=== PATIENT | female | born 1965 | race Caucasian/White ===

== ENCOUNTER 2020-11-29 12:55 | Outpatient (REF) | payer MEDICAID, SELFPAY | END 2020-11-29 12:56 | disposition home or self-care (01) | LOC: HO.SCI 12:55 | DX: Z13.89 Encounter for screening for other disorder (principal) ==

== ENCOUNTER 2020-12-13 08:16 | Outpatient (REF) | payer MEDICAID, SELFPAY ==
--- NOTE | ~2020-12-13 | MM_ITS ---
EXAMINATION: MM SCREENING DIGITAL BREAST TOMOSYNTHESIS, BILATERAL CLINICAL INFORMATION: Screening. Asymptomatic. Age 55. Prior [id number] mammography from [place] currently unavailable. Family history breast cancer, maternal aunt. The lifetime risk of breast cancer based on the Tyrer-Cuzick Model is 12%. COMPARISON: None. TECHNIQUE: Digital breast tomosynthesis is performed in both the craniocaudal and mediolateral oblique views along with computer-aided detection (CAD). Synthesized 2D images are generated from the tomosynthesis. FINDINGS: There are scattered areas of fibroglandular density (ACR BI-RADS breast composition Category b). There are no significant masses, abnormal calcifications, or other abnormalities. There are scattered benign-appearing asymmetries. The axilla and skin contours are unremarkable. MM/MM tomosynthesis screening BI IMPRESSION: No mammographic evidence of malignancy. ASSESSMENT: BI-RADS 2: Benign RECOMMENDATION: 1. Routine annual mammography screening. 2. Radiology department staff will attempt to retrieve prior outside mammography to allow for comparison in an addendum report. This patient's information was entered into a reminder system with a target due date for their next mammogram.
== END 2020-12-13 08:17 | disposition home or self-care (01) ==
LOC: HO.MAMMO 08:16
PROVIDERS: PCP Registered Nurse; Visit Provider Registered Nurse
DX: Z12.31 Encounter for screening mammogram for malignant neoplasm of breast (principal)
CPT/HCPCS: 77063; 77067

== ENCOUNTER 2021-02-22 07:39 | Outpatient (REF) | payer MEDICAID, SELFPAY ==
--- NOTE | ~2021-02-22 | US_ITS ---
EXAMINATION: US DIAGNOSTIC ULTRASOUND BREAST, LEFT CLINICAL INFORMATION: Left breast pain 2-3 weeks. No discharge or palpable abnormality. Recent mammography unremarkable. COMPARISON: Mammography 12/13/2020, outside mammography 06/13/2018, 03/11/2017 ([facility]). TECHNIQUE: Left breast is targeted to the area of clinical concern 5:00 to 7:00 position. Grayscale imaging and color Doppler are performed without and with harmonics. FINDINGS: There is no focal suspicious finding. There is no cystic or solid mass, architectural abnormality, duct ectasia, or edema in the soft tissue planes. No hyperemia on color Doppler. Results are discussed with the patient at time of visit. US/US breast LT limited IMPRESSION: Unremarkable targeted left breast ultrasound. ASSESSMENT: BI-RADS 1: Negative RECOMMENDATION: Patient's left breast pain should be managed based on the clinical impression. This patient's information was entered into a reminder system with a target due date for their next mammogram.
== END 2021-02-22 07:40 | disposition home or self-care (01) ==
LOC: HO.MAMMO 07:39
PROVIDERS: Visit Provider Internal Medicine
DX: N64.4 Mastodynia (principal)
CPT/HCPCS: 76642

== ENCOUNTER 2021-09-19 10:30 | Outpatient (REF) | payer MEDICAID, SELFPAY ==
--- NOTE | ~2021-09-19 | XR_ITS ---
EXAMINATION: XR CHEST CLINICAL INFORMATION: Pleurodynia COMPARISON: None TECHNIQUE: 2 views of the chest were obtained. FINDINGS: No significant abnormality is noted involving the heart, lungs, mediastinum, bony thorax or soft tissues. XR/XR chest 2V IMPRESSION: Unremarkable examination.
== END 2021-09-19 10:31 | disposition home or self-care (01) ==
LOC: HO.XRAY 10:30
PROVIDERS: Absent Provider Registered Nurse Community Health; PCP Registered Nurse Community Health; Visit Provider Nurse Practitioner
DX: R07.81 Pleurodynia (principal)
CPT/HCPCS: 71046

== ENCOUNTER 2022-03-13 09:12 | Outpatient (REF) | payer MEDICAID, SELFPAY ==
--- NOTE | ~2022-03-13 | MM_ITS ---
EXAMINATION: MM SCREENING DIGITAL BREAST TOMOSYNTHESIS, BILATERAL CLINICAL INFORMATION: Screening. Asymptomatic. The lifetime risk of breast cancer based on the Tyrer-Cuzick Model is 14%. COMPARISON: Mammography: 12/13/2020, at outside mammography 06/13/2018, 03/11/2017 ([place], [place]). TECHNIQUE: Digital breast tomosynthesis is performed in both the craniocaudal and mediolateral oblique views along with computer-aided detection (CAD). Synthesized 2D images are generated from the tomosynthesis. FINDINGS: There are scattered areas of fibroglandular density (ACR BI-RADS breast composition Category b). There are no significant masses, abnormal calcifications, or other abnormalities. Parenchymal pattern is similar to prior studies. There is no developing density or architectural abnormality. The axilla are unremarkable. No significant changes. MM/MM tomosynthesis screening BI IMPRESSION: No mammographic evidence of malignancy. ASSESSMENT: BI-RADS 1: Negative RECOMMENDATION: Routine annual mammography screening. This patient's information was entered into a reminder system with a target due date for their next mammogram.
== END 2022-03-13 09:13 | disposition home or self-care (01) ==
LOC: HO.MAMMO 09:12
PROVIDERS: PCP Registered Nurse Community Health; Visit Provider Registered Nurse Community Health
DX: Z12.31 Encounter for screening mammogram for malignant neoplasm of breast (principal)
CPT/HCPCS: 77063; 77067

== ENCOUNTER 2023-04-09 10:13 | Outpatient (REF) | payer MEDICAID, SELFPAY ==
--- NOTE | ~2023-04-09 | MM_ITS ---
EXAMINATION: MM SCREENING DIGITAL BREAST TOMOSYNTHESIS, BILATERAL CLINICAL INFORMATION: Screening. Asymptomatic. The lifetime risk of breast cancer based on the Tyrer-Cuzick Model is 11%. COMPARISON: Mammography: 03/13/2022, 12/13/2020; outside exams 06/13/2018 and 03/11/2017 ([facility] [place], [place], [place] TECHNIQUE: Digital breast tomosynthesis is performed in both the craniocaudal and mediolateral oblique views along with computer-aided detection (CAD). Synthesized 2D images are generated from the tomosynthesis. FINDINGS: There are scattered areas of fibroglandular density (ACR BI-RADS breast composition Category b). There are no significant masses, abnormal calcifications, or other abnormalities. No architectural abnormality or developing density or significant change from prior studies. The axilla and skin contours are unremarkable. MM/MM tomosynthesis screening BI IMPRESSION: No mammographic evidence of malignancy. ASSESSMENT: BI-RADS 1: Negative RECOMMENDATION: Routine annual mammography screening. This patient's information was entered into a reminder system with a target due date for their next mammogram.
== END 2023-04-09 10:14 | disposition home or self-care (01) ==
LOC: HO.MAMMO 10:13
PROVIDERS: Visit Provider Registered Nurse Community Health
DX: Z12.31 Encounter for screening mammogram for malignant neoplasm of breast (principal)
CPT/HCPCS: 77063; 77067

== ENCOUNTER 2023-10-21 09:12 | Outpatient (REF) | payer MEDICAID, SELFPAY ==
[2023-10-21 11:35] LABS: Hematocrit 41.6 % (37.0-47.0); Hemoglobin 13.5 g/dl (12.0-16.0); Mean Corpuscular HGB Conc 32.5 g/dl (31.0-35.0); Mean Corpuscular Hemoglobin 29.8 pg (27.0-33.0); Mean Corpuscular Volume 91.8 fL (80.0-98.0); Mean Platelet Volume 10.5 fL (9.4-12.3); Platelet Count 364 X10*3/uL (160-400); Red Blood Count 4.53 X10*6/uL (4.20-5.50); Red Cell Distribution Width 11.8 % (11.0-16.0); White Blood Count 5.5 X10*3/uL (4.8-10.8)
[2023-10-21 11:52] LABS: Estimated Average Glucose 105 mg/dL; Hemoglobin A1c % 5.3 % (<6.0)
[2023-10-21 12:10] LABS: HBsAGNum1 0.27 S/CO (0.00-0.99); Hepatitis B Surface Antigen Negative (Negative)
[2023-10-21 12:13] LABS: HBS Num1 0.18 mIU/mL (0-7.99); HBc Num1 0.12 S/CO (0.00-0.79); Hepatitis B Core Antibody Nonreactive (Nonreactive); ~HepC Num1 0.57 S/CO (0.00-0.79); ~Hepatitis B Surface Antibody NONREACTIVE (Nonreactive); ~Hepatitis C Antibody Nonreactive (Nonreactive)
[2023-10-21 12:23] LABS: Alanine Aminotransferase 13 U/L (0-31); Albumin Level 4.3 g/dL (3.5-5.0); Alkaline Phosphatase 62 U/L (39-117); Anion Gap 13 (12-20); Aspartate Amino Transferase 17 U/L (5-31); Bilirubin Total 1.1 mg/dL (0.0-1.0); Blood Urea Nitrogen 13 mg/dL (9-16); Calcium 9.3 mg/dL (8.4-10.2); Carbon Dioxide 25 mmol/L (22-29); Chloride 104 mmol/L (96-108); Cholesterol 183 mg/dL (<200); Estimated Glomerular Filt Rate > 60; Glucose Random 93 mg/dL (60-115); HDL Cholesterol 79 mg/dL (>40); Iron 106 mcg/dL (30-160); LDL Cholesterol Calculated 93 mg/dL (<100); Percent Iron Saturation 30 % (15-50); Sodium 138 mmol/L (135-145); Total Iron Binding Capacity 350 mcg/dL (228-428); Total Protein 7.1 g/dL (6.5-8.0); Triglycerides 56 mg/dL (<150); Unsaturated Iron Binding 244 ug/dL
[2023-10-21 12:31] LABS: Ferritin 47 ng/mL (10-250); TSH reflex Free T4 0.98 uIU/mL (0.32-4.0)
== END 2023-10-21 09:13 | disposition home or self-care (01) ==
LOC: HO.HHCL 09:12
PROVIDERS: Visit Provider Student in an Organized Health Care Education/Training Program
DX: Z00.00 Encounter for general adult medical examination without abnormal findings (principal); Z13.1 Encounter for screening for diabetes mellitus; Z11.59 Encounter for screening for other viral diseases; Z13.220 Encounter for screening for lipoid disorders; Z13.29 Encounter for screening for other suspected endocrine disorder
CPT/HCPCS: 36415; 80053; 80061; 82728; 83036; 83540; 84443; 85027; 86704; 86706; 86803; 87340

== ENCOUNTER 2023-10-21 13:31 | Outpatient (REF) | payer MEDICAID, SELFPAY ==
[2023-10-25 03:48] LABS: HPV mRNA E6/E7 rflx Not Detected (Not Detected)
== END 2023-10-21 13:32 | disposition home or self-care (01) ==
LOC: HO.HHCLNP 13:31
PROVIDERS: Visit Provider Advanced Practice Midwife
DX: Z12.4 Encounter for screening for malignant neoplasm of cervix (principal); Z78.0 Asymptomatic menopausal state; Z11.51 Encounter for screening for human papillomavirus (HPV)
CPT/HCPCS: 87624; 88142

== ENCOUNTER 2023-12-10 09:00 | Outpatient (RCR) | payer MEDICAID, SELFPAY | END 2024-01-07 12:02 | disposition home or self-care (01) | LOC: HO.PT 09:00 | PROVIDERS: PCP Student in an Organized Health Care Education/Training Program; Visit Provider Student in an Organized Health Care Education/Training Program | DX: M25.512 Pain in left shoulder (principal); R42 Dizziness and giddiness | CPT/HCPCS: 97110; 97140; 97162; 97530 ==

== ENCOUNTER 2024-01-13 13:21 | Outpatient (REF) | payer MEDICAID, SELFPAY ==
--- NOTE | ~2024-01-13 | XR_ITS ---
EXAMINATION: XR SHOULDER, LEFT CLINICAL INFORMATION: Chronic left shoulder pain. COMPARISON: None available. TECHNIQUE: AP external rotation, Grashey, scapular Y, and axillary views of the left shoulder. FINDINGS: Some minimal degenerative changes are seen with some mild sclerotic change at the inferior glenoid. No large osteophytes. No joint space narrowing. No abnormal calcifications in the rotator cuff. The AC joint appears normal. No fractures or dislocations. XR/XR shoulder LT min 2V IMPRESSION: Minimal degenerative changes in the left shoulder.
== END 2024-01-13 13:22 | disposition home or self-care (01) ==
LOC: HO.HHCX 13:21
PROVIDERS: Visit Provider Student in an Organized Health Care Education/Training Program
DX: M25.512 Pain in left shoulder (principal)
CPT/HCPCS: 73030

== ENCOUNTER 2024-04-13 09:44 | Outpatient (REF) | payer MEDICAID, SELFPAY | END 2024-04-13 09:45 | disposition home or self-care (01) | LOC: HO.MAMMO 09:44 | PROVIDERS: PCP Student in an Organized Health Care Education/Training Program; Visit Provider Student in an Organized Health Care Education/Training Program | DX: Z12.31 Encounter for screening mammogram for malignant neoplasm of breast (principal) | CPT/HCPCS: 77063; 77067 ==

== ENCOUNTER → 2024-04-13 10:00 | Outpatient (BNV) | payer MEDICAID, SELFPAY | PROVIDERS: PCP Student in an Organized Health Care Education/Training Program; Visit Provider Radiology Diagnostic Radiology | DX: Z12.31 Encounter for screening mammogram for malignant neoplasm of breast (principal) | CPT/HCPCS: 77063; 77067 ==

== ENCOUNTER 2025-05-04 08:47 | Outpatient (REF) | payer OTHER, SELFPAY ==
--- OUTSIDE RECORDS SUMMARY | 2025-05-04 09:05 | XMS_ITS | Encounter Summary ---
Author Organization [employer] Address [address] [place] [address] Care Team Providers Care Radioactive Waste Disposal Dispatcher Name Role Phone Martina Pearson MD Primary Care Pro vider Reason for Visit * Reason Onset Date Comments Med Refill 04/19/2025 Encounter Details Date Type Department Care Team ([facility] Contact Info) Description 04/19/2025 Telephone [facility] MEDICINE [address] [place] [address] Martina Pearson MD [address] [place] [address] Med Refill Social History Tobacco Use Types Packs/Day Years Used Date Smoking Tobacco: Never Passive Smoke Exposure: Never Smokeless Tobacco: Never Alcohol Use Standard Drinks/Week Comments Not Currently 0 (1 standard drink = 0.6 oz pure alcohol) 3 times a week -wine 1/2 Glass Depression Answer Date Recorded Patient Health Questionnaire-9 Score 0 11/13/2024 Patient Health Questionnaire-9 Score 0 11/13/2024 Last PHQ-9: Questionnaire Data Not on file 0 11/13/2024 Housing Stability Answer Date Recorded What is your housing situation today? I have sarithaisabel gonzalez 01/13/[address] you li ve. Do you have problems with any of the following? None of the above 01/13/2024 Food Insecurity Answer Date Recorded Within the past 12 months, y ou worried that your food would run out before you got money to buy more: Never True 01/13/2024 Within the past 12 months,th e food you bought just didn't last and you didn't have enough money to get more: Never True 09/2024 Transportation Answer Date Recorded In the past 12 months, has l ack of transportation kept you from medical appts, meetings, work or from getting things needed for daily living? No 01/13/2024 Utilities Answer Date Recorded In the past 12 months, has t he electric, gas, oil or water company threatened to shut off services in your home? No 01/13/2024 Depression Answer Date Recorded Patient Health Questionnaire-2 Score 0 11/13/2024 Internet Access Answer Date Recorded Internet Access Q1 Yes 09/21/2024 Internet Access Q2 Not on file 09/21/2024 Comments No Sex and Gender Information Value Date Recorded Sex Assigned at Female 09/03/2022 10:36 AM EDT Legal Sex Female 10:36 AM EDT Gender Identity Female 07/15/2023 2:14 PM EDT Sexual Orientation Straight 07/15/2023 2: 14 PM EDT documented as of this encounter Miscellaneous Notes * Telephone Encounter - Annabelle Abrams LPN - 04/19/2025 1:29 PM EDT Medication pended to PCP for approval. * Telephone Encounter - Pily Adlana - 04/19/2025 1:24 PM EDT TC from pt requesting medication refill. Medications needing refill : citalopram (CeleXA) 10 MG tablet To be sent to: [facility]/pharmacy #[id number] documented in this encounter Plan of Treatment Upcoming Encounters Date Type Department Care Team (Late st Contact Info) Description 07/13/2025 9:15 AM EDT Office Visit [facility] MEDICINE [address] [place] [address] Martina Pearson MD [address] [place] [address] documented as of this encounter Visit Diagnoses Not on filedocumented in this encounter Additional Health Concerns Assessment Noted Time PHQ-9 Depression Total Score: 0 11/13/19 25 3:27 PM EST documented as of this encounter Care Teams Radioactive Waste Disposal Dispatcher Relationship Specialty Start Date End Date Martina Pearson MD [address] [place] [id number] PCP - General Internal Medicine 07/22/23 documented as of this encounter
== END 2025-05-04 08:48 | disposition home or self-care (01) ==
LOC: HO.MAMMO 08:47
PROVIDERS: PCP Student in an Organized Health Care Education/Training Program; Visit Provider Student in an Organized Health Care Education/Training Program
DX: Z12.31 Encounter for screening mammogram for malignant neoplasm of breast (principal)
CPT/HCPCS: 77063; 77067

== ENCOUNTER → 2025-05-04 09:00 | Outpatient (BNV) | payer OTHER, SELFPAY | PROVIDERS: PCP Student in an Organized Health Care Education/Training Program; Visit Provider Internal Medicine | DX: Z12.31 Encounter for screening mammogram for malignant neoplasm of breast (principal) | CPT/HCPCS: 77063; 77067 ==

== ENCOUNTER 2025-07-13 10:19 | Outpatient (REF) | payer OTHER, SELFPAY ==
--- NOTE | ~2025-07-13 | XR_ITS ---
EXAMINATION: XR CHEST CLINICAL INFORMATION: pt having dyspnea episodes COMPARISON: September 19, 2021 TECHNIQUE: PA and lateral views FINDINGS: Hyperinflated lungs. Pulmonary reticular pattern. No gross consolidation, pleural effusion or pneumothorax. Cardiomediastinal silhouette is normal. Mild multilevel thoracic and upper lumbar spondylosis. Osteopenia versus the process. 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 No acute airspace disease. Electronically signed by: Abdoul Carlos MD 07/13/2025 10:35 AM EDT
--- OUTSIDE RECORDS SUMMARY | 2025-07-13 09:15 | XMS_ITS | Encounter Summary ---
Author Organization [employer] Address [address] [place] [address] Care Team Providers Care Life Insurance Specialist Name Role Phone Martina Pearson MD Primary Care Pro vider Reason for Referral * Consultation (Routine) - Authorized Specialty Diagnoses / Procedures Referred By Jayleen t Referred To Contact Family Medicine Diagnoses Skin lesion Martina Pearson MD [address] [place] [address] Phone: tel: fax: Referral ID Status Reason Start Date Expiration Date Visits Requested Visits Authorized [id number] Authorized Specialty Services Required 07/13/2025 07/13/2026 1 1 * PFT (Routine) - Pending Review Specialty Diagnoses / Procedures Referred By Jayleen sylvester Referred To Contact Diagnoses Other form of dyspnea Annual physical exam Procedures Pulmonary Function Test Martina Pearson MD [address] [place] [address] Phone: tel: fax: Referral ID Status Reason Start Date Expiration Date V isits Requested Visits Authorized [id number] Pending Review 07/13/2025 07/13/2026 1 1 Encounter Details Date Type Department Care Team (Late st Contact Info) Description 07/13/2025 9:15 AM EDT Office Visit [facility] MEDICINE [address] [place] [phone] Martina Pearson MD [address] [place] [address] Other form of dyspnea (Primary Dx); Annual physical exam; Skin lesion; Chest discomfort Social History Tobacco Use Types Packs/Day Years Used Date Smoking Tobacco: Never Passive Smoke Exposure: Never Smokeless Tobacco: Never Tobacco Cessation:Counseling Given: Not Answered Alcohol Use Standard Drinks/Week Comments Not Currently 0 (1 standard drink = 0.6 oz pure alcohol) 3 times a week 1 glass of wine Depression Answer Date Recorded Patient Health Questionnaire-9 Score 3 07/13/2025 Patient Health Questionnaire-9 Score 3 07/13/2025 Last PHQ-9: Questionnaire Data Not on file 0 07/13/2025 Housing Stability Answer Date Recorded What is your housing situation today? I have saritha gonzalez 06/11/[address] you li ve. Do you have problems with any of the following? None of the above 06/11/2025 Food Insecurity Answer Date Recorded Within the past 12 months, y ou worried that your food would run out before you got money to buy more: Never True 06/11/2025 Within the past 12 months,th e food you bought just didn't last and you didn't have enough money to get more: Never True 06/2025 Transportation Answer Date Recorded In the past 12 months, has l ack of transportation kept you from medical appts, meetings, work or from getting things needed for daily living? No 06/11/2025 Utilities Answer Date Recorded In the past 12 months, has t he electric, gas, oil or water company threatened to shut off services in your home? No 06/11/2025 Depression Answer Date Recorded Patient Health Questionnaire-2 Score 0 07/13/2025 Internet Access Answer Date Recorded Internet Access Q1 Yes 09/21/2024 Internet Access Q2 Not on file 09/21/2024 Comments No Sex and Gender Information Value Date Recorded Sex Assigned at Female 09/03/2022 10:36 AM EDT Legal Sex Female 10:36 AM EDT Gender Identity Female 07/15/2023 2:14 PM EDT Sexual Orientation Straight 07/15/2023 2: 14 PM EDT documented as of this encounter Last Filed Vital Signs Vital Sign Reading Time Taken Comments Blood Pressure 96/62 07/13/2025 9:19 AM EDT Pulse 88 07/13/2025 9:19 AM EDT Temperature 36.2 C (97.1 F) 07/13/2025 9:19 AM EDT Respiratory Rate 20 07/13/2025 9:19 AM EDT Oxygen Saturation 97% 07/13/2025 9:19 AM EDT Inhaled Oxygen Concentration - - Weight 61.6 kg (135 lb 12.8 oz) 07/13/2025 9:19 AM EDT Height 162.6 cm (5' 4 ) 07/13/2025 9:19 AM EDT Body Mass Index 23.31 07/13/2025 9:19 AM EDT documented in this encounter Functional Status * Over the past 2 weeks, how often have you been bothered by any of the following problems? Question Answer Date of Assessment Author Patient Health Questionnaire -2 Score 0 07/13/2025 10:17 AM EDT Gretel Perez MA * Little interest or pleasure in doing things Answer Date of Assessment Author Not at all 07/13/2025 10:17 AM Gretel Camarena MA * Feeling down, depressed, or hopeless Answer Date of Assessment Author Not at all 07/13/2025 10:17 AM Gretel Camarena MA * Trouble falling or staying asleep, or sleeping too much Answer Date of Assessment Author More than half the days 07/13/2025 10:17 AM Gretel Camarena MA * Feeling tired or having little energy Answer Date of Assessment Author Several days 07/13/2025 10:17 AM Gretel Camarena MA * Poor appetite or overeating Answer Date of Assessment Author Not at all 07/13/2025 10:17 AM Gretel Camarena MA * Feeling bad about yourself - or that you are a failure or have let yourself or your family down Answer Date of Assessment Author Not at all 07/13/2025 10:17 AM Gretel Camarena MA * Trouble concentrating on things, such as reading the newspaper or watching television Answer Date of Assessment Author Not at all 07/13/2025 10:17 AM Gretel Camarena MA * Moving or speaking so slowly that other people could have noticed? Or the opposite - being so fidgety or restless that you have been moving around a lot more than usual. Answer Date of Assessment Author Not at all 07/13/2025 10:17 AM Gretel Camarena MA * Thoughts that you would be better off or hurting yourself in some way Answer Date of Assessment Author Not at all 07/13/2025 10:17 AM Gretel Camarena MA * Patient Health Questionnaire-9 Score Answer Date of Assessment Author 3 07/13/2025 10:17 AM Gretel Camarena MA * How difficult have these problems made it for you to do your work, take care of things at home, or get along with other people? Answer Date of Assessment Author Not difficult at all 07/13/2025 10:17 AM Gretel Reddy MA * Over the last 2 weeks, how often have you been bothered by any of the following problems? Question Answer Date of Assessment Author Feeling nervous, anxious, or on edge 3 07/13/2025 10:17 AM Gretel Camarena MA Not being able to stop or co ntrol worrying 1 07/13/2025 10:17 AM Gretel Camarena MA Worrying too much about diff erent things 1 07/13/2025 10:17 AM Gretel Camarena MA Trouble relaxing 3 07/13/2025 10:17 AM Gretel Camarena MA Being so restless that it is hard to sit still 0 07/13/2025 10:17 AM Gretel Camarena MA Becoming easily annoyed or irritable 3 07/13/2025 10:17 AM Gretel Camarena MA Feeling afraid as if somethi ng awful might happen 0 07/13/2025 10:17 AM Gretel Camarena MA KEVIN-7 Total Score 11 07/13/2025 10:17 Gretel Hopson MA documented as of this encounter Plan of Treatment Scheduled Orders Name Type Priority Associated Diagnoses Orde r Schedule Pulmonary Function Test PFT Routine Other form of dyspnea Annual physical exam Expected: 07/13/2025, Expires: 01/10/2026 CBC auto differential Lab Routine Annual physical exam Expected: 07/13/2025 (Approximate), Expires: 07/13/2026 Chlamydia/Trichomonas/Neiss eria gonorrhoeae, PCR, Urine Lab Routine Annual physical exam Ordered: 07/13/2025 Comprehensive Metabolic Panel Lab Routine Annual physical exam Expected: 07/13/2025 (Approximate), Expires: 07/13/2026 Hemoglobin A1c Lab Routine Annual physical exam Expected: 07/13/2025 (Approximate), Expires: 07/13/2026 Hepatitis B surface antigen, EIA Lab Routine Annual physical exam Expected: 07/13/2025 (Approximate), Expires: 07/13/2026 Hepatitis C Antibody with Reflex to HCV, RNA, Quantitative, Real-Time PCR Lab Routine Annual physical exam Expected: 07/13/2025 (Approximate), Expires: 07/13/2026 HIV-1/2 Antigen and Antibodies, Fourth Generation, with Reflexes Lab Routine Annual physical exam Expected: 07/13/2025 (Approximate), Expires: 07/13/2026 Lipid Panel, Standard Lab Routine Annual physical exam Expected: 07/13/2025 (Approximate), Expires: 07/13/2026 Syphilis Screen Lab Routine Annual physical exam Expected: 07/13/2025 (Approximate), Expires: 07/13/2026 TSH with Reflex to Free T4 Lab Routine Annual physical exam Expected: 07/13/2025 (Approximate), Expires: 07/13/2026 Vitamin D, 25-Hydroxy, Total, Immunoassay Lab Routine Annual physical exam Expected: 07/13/2025 (Approximate), Expires: 07/13/2026 Bilirubin, Direct Lab Routine Annual physical exam Expected: 07/13/2025 (Approximate), Expires: 07/13/2026 Scheduled Referrals Name Type Priority Associated Diagnoses Orde r Schedule Referral to [facility] Derm Skin Adult Outpatient Referral Routine Skin lesion Expected: 07/13/2025 (Approximate), Expires: 07/13/2026 documented as of this encounter Procedures Procedure Name Priority Date/Time Associated Diagnosis Comments XR CHEST 2 VIEWS Routine 07/13/2025 10:2 9 AM EDT Other form of dyspnea Annual physical exam ECG 12-LEAD Routine 07/13/2025 10:14 AM EDT Chest discomfort documented in this encounter Results * XR Chest 2 Views (07/13/2025 10:29 AM EDT) Anatomical Region Laterality Modality Chest Radiographic [place] 07/13/2025 10:2 9 AM EDT Narrative 07/13/2025 10:38 AM EDT [address] [address] XRay Report Signed Patient: Jesica Frye MR#: [id number] : 1965 Acct:[id number] Age/Sex: 60 / F ADM Date: 07/13/25 [facility]: Martina Rogers MD Ordering Physician: Martina Pearson MD Date of Service: 07/13/25 Procedure(s): XR chest 2V Accession Number(s): [id number] cc: Martina Pearson MD Reason for Exam: pt having dyspnea episodes EXAMINATION: XR CHEST CLINICAL INFORMATION: pt having dyspnea episodes COMPARISON: September 19, 2021 TECHNIQUE: PA and lateral views FINDINGS: Hyperinflated lungs. Pulmonary reticular pattern. No gross consolidation, pleural effusion or pneumothorax. Cardiomediastinal silhouette is normal. Mild multilevel thoracic and upper lumbar spondylosis. Osteopenia versus the process. 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 No acute airspace disease. Electronically signed by: Abdoul Carlos MD 07/13/2025 10:35 AM EDT Dictated By: Abdoul John MD Signed By: <Electronically signed by Abdoul Sloan MD in OV> 07/13/25 1035 DD/ 1029 TD/TT: 07/13/25 1030 Tennis Centre Manager: Procedure Note Donotuseinterpreter, Image - 07/13/2025 [facility] [address] [place] [address] XRay Report Signed Patient: Eileen Frye#: [id number] : 1965Acct:[id number] Age/Sex: 60 / FADM Date: 07/13/25 Loc: [facility] Attending Dr: Martina Rogers MD Ordering Physician: Martina Pearson MD Date of Service: 07/13/25 Procedure(s): XR chest 2V Accession Number(s): [id number] cc: Martina Pearson MD Reason for Exam: pt having dyspnea episodes EXAMINATION: XR CHEST CLINICAL INFORMATION: pt having dyspnea episodes COMPARISON: September 19, 2021 TECHNIQUE: PA and lateral views FINDINGS: Hyperinflated lungs. Pulmonary reticular pattern. No gross consolidation, pleural effusion or pneumothorax. Cardiomediastinal silhouette is normal. Mild multilevel thoracic and upper lumbar spondylosis. Osteopenia versus the process. 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 No acute airspace disease. Electronically signed by: Abdoul Carlos MD 07/13/2025 10:35 AM EDT Dictated By: Abdoul John MD Signed By: <Electronically signed by Abdoul Sloan MDin OV> 07/13/25 1035 DD/ 1029 TD/TT: 07/13/25 1030 Tennis Centre Manager: us Martina Rogers MD IMG XR PROCEDURES Edited Result - Final * ECG 12 lead (07/13/2025 10:14 AM EDT) Narrative Martnia Pearson MD - 07/13/2025 10:14 AM EDT -EKG today 07/2025 NSR, HR 71, Qtc 395, no ischemic findings us Martina Rogers MD ECG ORDERABLES F inal Result documented in this encounter Visit Diagnoses Diagnosis Other form of dyspnea- Primary Annual physical exam Routine general medical examination at a health care facility Skin lesion Unspecified disorder of skin and subcutaneous tissue Chest discomfort Other chest pain documented in this encounter Additional Health Concerns Assessment Noted Time PHQ-9 Depression Total Score: 3 07/13/20 25 10:17 AM EDT documented as of this encounter Care Teams Life Insurance Specialist Relationship Specialty Start Date End Date Martina Pearson MD [address] [place] [id number] PCP - General Internal Medicine 07/22/23 documented as of this encounter
--- OUTSIDE RECORDS SUMMARY | 2025-07-13 12:07 | XMS_ITS | Encounter Summary ---
Author Organization [employer] Address [address] [facility] [address] [place] [address] Care Team Providers Care Manager Image Name Role Phone Kristyn Birmingham [facility] Primary Care Provider [phone] Martina Pearson MD Primary Care Pro vider Encounter Details Date Type Department Care Team (Late st Contact Info) Description 11/21/2022 Orders Only [facility] [address] [place] [address] Annabelle Abrams LPN Social History Tobacco Use Types Packs/Day Years Used Date Smoking Tobacco: Never Assessed Comments Unknown Sex and Gender Information Value Date Recorded Sex Assigned at Female 09/03/2022 10:36 AM EDT Legal Sex Female 10:36 AM EDT Gender Identity Female 07/15/2023 2:14 PM EDT Sexual Orientation Straight 07/15/2023 2: 14 PM EDT documented as of this encounter Plan of Treatment Not on file documented as of this encounter Procedures Procedure Name Priority Date/Time Associated Diagnosis Comments HPV MRNA E6/E7 REFLEX TO HPV 16, 18/45 Routine 10/21/2023 9:36 AM EST HEPATITIS B SURFACE ANTIGEN, EIA Routine 10/21/2023 9:13 AM EST documented in this encounter Results * HPV mRNA E6/E7 w/Reflex to HPV Genotypes 16, 18/45 (10/21/2023 9:36 AM EST) HPV nRNA E6/E7 Not Detected Not Detected [facility] Comment:Methodology: Transcr iption-Mediated AmplificationThis assay detects E6/E7 viral messenger RNA (mRNA) from 14high-risk HPV types (16,18,31,33,35,39,45,51,52,56,58,59,66,68).Cervical sources are required for HPV testing.If a vaginal source from a patient who has had atotal hysterectomy with removal of cervix wassubmitted, please contact the testing laboratoryfor alternative testing options.For additional information, please refer [email or web address](This link if provided for information/educational purposes only.)THIS TEST WAS PERFORMED AT:[facility] [place] [phone] LANDRUM MD HPV mRNA E6/E7 [facility] HPV 16 RNA [facility] HPV 18/45 RNA [facility] 10/21/2023 9:36 AM EST 10/22/2023 8:30 AM EST us Anastasiya BOB LAB CYTOLOGY ORDERABLES F inal Result Performing Organization Address City/[facility]/ZIP Co de Phone Number [facility] [address] [place] [phone] * Hepatitis B surface antigen, EIA (10/21/2023 9:13 AM EST) Hepatitis B Surface Ag Negative Negative [facility] 10/21/2023 9:13 AM EST 10/21/2023 11:21 AM EST us Martina Rogers MD LAB BLOOD ORDERAB LES Final Result Performing Organization Address [facility]/ZIP Co de Phone Number [facility] [address] [place] [phone] documented in this encounter Visit Diagnoses Not on filedocumented in this encounter Care Teams Manager Image Relationship Specialty Start Date End Date Kristyn Birmingham FNP [address] [place] [phone] PCP - General Family Medicine 05/01/22 07/21/23 Martina Pearson MD [address] [place] [phone] PCP - General Internal Medicine 07/22/23 documented as of this encounter
--- OUTSIDE RECORDS SUMMARY | 2025-07-13 12:07 | XMS_ITS | Encounter Summary ---
Author Organization [employer] Address [address] [place] [address] [place] [address] Care Team Providers Care Public Service Representative Name Role Phone Martina Pearson MD Primary Care Pro vider Encounter Details Date Type Department Care Team (Latest Contact Info) Description 05/17/2025 Results Follow-Up [facility] [address] [place] [address] Martina Pearson MD [address] [place] [address] BI Mammogram Screening Tomosynthesis Bilateral Social History Tobacco Use Types Packs/Day Years [...] housing situation today? I have saritha gonzalez 01/13/[address] you [...] as of this encounter Miscellaneous Notes * Result Encounter Note - Martina Rogers MD - 05/17/2025 2:39 PM EDT Please call patient to advise to come to already scheduled apt with me to go over image result Thanks ---- will need to calc Tyrer-Cuzick Risk at next apt w pt documented in this encounter Plan of Treatment Not on file documented as of this encounter Visit Diagnoses Not on filedocumented in this encounter Additional Health Concerns Assessment Noted Time PHQ-9 Depression Total Score: 0 11/13/19 25 3:27 PM EST documented as of this encounter Care Teams Public Service Representative Relationship Specialty Start Date End Date Martina Pearson MD [address] [place] [phone] PCP - General Internal Medicine 07/22/23 documented as of this encounter
--- OUTSIDE RECORDS SUMMARY | 2025-07-13 12:07 | XMS_ITS | Encounter Summary ---
Author Organization [employer] Address [address] [place] [address] Care Team Providers Care Lamination Builder Name Role Phone Martina Pearson MD Primary Care Pro vider Reason for Visit * Reason Onset Date Comments Med Refill 04/19/2025 Encounter Details Date Type Department Care Team ([facility] Contact Info) Description 04/19/2025 Telephone [facility] [address] [place] [address] Martina Pearson MD [address] [place] [address] Med Refill Social History Tobacco Use Types [...] for approval. * Telephone Encounter - Pily Aldana - 04/19/2025 1:24 PM EDT TC from pt requesting medication refill. Medications needing refill : citalopram (CeleXA) 10 MG tablet To be sent to: [facility]/pharmacy #[id number] [place], [place] - [address] [place] [address] documented in this encounter Plan of Treatment Not on file documented as of this encounter Visit Diagnoses Not on filedocumented in this encounter Additional Health Concerns Assessment Noted Time PHQ-9 Depression Total Score: 0 11/13/19 25 3:27 PM EST documented as of this encounter Care Teams Lamination Builder Relationship Specialty Start Date End Date Martina Pearson MD [address] [place] [phone] PCP - General Internal Medicine 07/22/23 documented as of this encounter
--- OUTSIDE RECORDS SUMMARY | 2025-07-13 12:07 | XMS_ITS | Clinical Summary ---
Author Organization [facility] Address [facility] [place] [address] Care Team Providers Care Client Care Manager Name Role Phone Unknown Primary Care Provider Unavailabl e Family History Medical History Relation Comments Breast Cancer Maternal Aunt Breast Cancer Paternal Aunt Relation Status Comments Maternal Aunt Paternal Aunt Social History Tobacco Use Types Packs/Day Years Used Date Smoking Tobacco: Never Assessed Comments No Sex and Gender Information Value Date Recorded Sex Assigned at Not on file Legal Sex Female 10:35 AM EDT Gender Identity Not on file Sexual Orientation Not on file Plan of Treatment Health Maintenance Due Date Last Done Comments CT Colonography 1963 FIT DNA 1963 FIT 1963 Sigmoidoscopy (10 year) with FIT yearly 1963 Sigmoidoscopy 1963 HIV screen 1981 Hepatitis C Screening 1981 Tetanus/Diphtheria/Pertussis Vaccines (1 - Tdap) 1982 HPV test 1993 Breast Cancer Share Decision Needed 2003 Pneumoccocal Vaccine: 50+ (1 of 1 - PCV) 2013 Zoster vaccine (1 of 2) 2013 PAP Smear 02/25/2018 02/25/2013 Advance Directive 2018 Breast Cancer screening 06/13/2020 06/13/20 18, 03/11/2017, 10/12/2015, Additional history exists Covid-19 Vaccine (1 - 2023-2 5 season) 2025 Influenza (Flu) vaccine (1 o f 1 - Influenza standard series) 07/05/2025 Colonoscopy 02/19/2027 02/19/2017 Colorectal Cancer Screening 02/19/2027 Procedures Procedure Name Priority Date/Time Associated Diagnosis Comments MAMMO SCREENING CAD AND ANUPAM BILATERAL Routine 06/13/2018 6:46 AM EDT Screening breast examination EXTERNAL COLONOSCOPY RESULT Routine 02/19/2017 EXTERNAL PAP SMEAR RESULT PANEL Routine 02/25/2013 12:00 PM EDT from Last 3 Months or Most Recently Relevant to Health Maintenance Results * Mammo Screening Cad and Anupam Bilateral (06/13/2018 6:46 AM EDT) Anatomical Region Laterality Modality Breast Bilateral Mammography Impressions 06/13/2018 2:39 PM EDT Normal mammogram. No evidence for malignancy. Routine mammographic screening is recommended. BIRADS Category 1: Negative Narrative 06/13/2018 2:39 PM EDT EXAMINATION: MAMMO SCREENING CAD AND ANUPAM BILATERAL CLINICAL HISTORY: routine TECHNIQUE: CC and MLO projections as well as tomography were reviewed. The films were also reviewed with the [employer] Computer Aided Detection System (Version 10.0). COMPARISON: 03/11/2017 FINDINGS: The breasts are symmetric in size and are of scattered fibroglandular density. I see no suspicious masses or microcalcifications to suggest malignancy. us Bri Pastrana MD IMG MAMMO ORDERABLES Final Res ult * (ABNORMAL) External Colonoscopy (02/19/2017) External Colonoscopy DONE(Exter nal Lab) 02/19/2017 us His [place] Provider EXTERNAL GI PROCEDURE RE SULT Edited Result - Final * (ABNORMAL) External Pap Smear (02/25/2013 12:00 PM EDT) External PAP Smear 02/25/2013; See [employer] system for full report(Externa l Lab) [facility] RESULT CONVERSION Comment: Sourced from Leslie Quiroz Conversion 02/25/2013 12:0 0 PM EDT us His [place] Provider EXTERNAL LAB ORDERABLES nal Result [facility] RESULT CONVERSION from Last 3 Months or Most Recently Relevant to Health Maintenance Insurance MEDICAID [place] [facility] Care Teams Client Care Manager Relationship Specialty Start Date End Date Unknown None PCP - General 11/04/19
--- OUTSIDE RECORDS SUMMARY | 2025-07-13 12:07 | XMS_ITS | Encounter Summary ---
Author Organization [employer] Address [address] [facility] [address] [place] [address] Care Team Providers Care Channel Cementer Outsole Machine Name Role Phone Martina Pearson MD Primary Care Pro vider Encounter Details Date Type Department Care Team (Latest Contact Info) Description 07/12/2025 Travel Social History Tobacco Use Types Packs/Day Years [...] documented as of this encounter Care Teams Channel Cementer Outsole Machine Relationship Specialty Start Date End Date Martina Pearson MD [address] [place] [phone] PCP - General Internal Medicine 07/22/23 documented as of this encounter
--- OUTSIDE RECORDS SUMMARY | 2025-07-13 12:07 | XMS_ITS | Encounter Summary ---
Author Organization [employer] Address [address] [facility] [address] [place] [address] Care Team Providers Care Registered Nurse Bone Marrow Transplant Name Role Phone Martina Pearson MD Primary Care Pro vider Encounter Details Date Type Department Care Team (Latest Contact Info) Description 07/13/2025 Travel Social History Tobacco Use Types Packs/Day [...] PM EDT documented as of this encounter Functional Status * Over the past 2 weeks, how often have you been bothered by any of the following problems? Question Answer Date of Assessment Author Patient Health Questionnaire -2 Score 0 07/13/2025 10:17 AM Gretel Camarena [place] * Little interest or pleasure in [...] MA KEVIN-7 Total Score 11 07/13/2025 10:17 AM Gretel Camarena MA documented as of this encounter Plan of Treatment Not on file documented as of this encounter Visit Diagnoses Not on filedocumented in this encounter Additional Health Concerns Assessment Noted Time PHQ-9 Depression Total Score: 3 07/13/20 25 10:17 AM EDT documented as of this encounter Care Teams Registered Nurse Bone Marrow Transplant Relationship Specialty Start Date End Date Martina Pearson MD [address] [place] [phone] PCP - General Internal Medicine 07/22/23 documented as of this encounter
--- OUTSIDE RECORDS SUMMARY | 2025-07-13 12:07 | XMS_ITS | Clinical Summary ---
Author Organization [employer] Address [address] [place] [address] [address] [place] [address] Care Team Providers Care Job Developer For Deaf Adults Name Role Phone Martina Pearson MD Primary Care Pro vider Allergies Active Allergy Reactions Criticality Noted Date Comments Penicillins Rash Low 11/13/2019 Reports rash as adult when took amoxicillin Acetic Acid 07/13/2025 Medications estradiol (Estrace) 0.1 MG/GM vaginal creamIndication s:Vaginal dryness, menopausal 1 g 1-3 times a week vaginally prn 42.5 g 2 4 Active citalopram (CeleXA) 10 MG tabletIndicatio ns:Depression, unspecified depression type TAKE 1 TABLET BY MOUTH EVERY DAY IN THE MORNING 30 tablet 2 5 Active omega-3 acid ethyl esters (Lovaza) 1 g capsule Take 2 g by mouth 2 times daily. Active multivitamin (Theragran) tablet Take 1 tablet by mouth Once per day. Active Collagen-Vitami n C-Biotin (COLLAGEN 1500/C PO) Take by mouth. Acti ve hydrocortisone 1 % cream Apply topically 2 times daily. 1 g 3 025 Discontin ued(Other ) Diclofenac Sodium 1 % gelIndications: Acute pain of left shoulder APPLY 1 APPLICATION TOPICALLY IF NEEDED EACH DAY (SHOULDER PAIN). 100 g 1 4 025 Discontin ued(Other ) Active Problems Problem Noted Date Diagnosed Date Chest discomfort 07/13/2025 Dyspnea 07/13/2025 Abdominal lipoma 11/13/2024 Assessment & Plan (11/13/2024 4:14 PM EST): Patient reassured Lipoma of abdominal wall 11/13/2024 Health care maintenance 01/14/2024 Eczema 01/14/2024 Left shoulder pain 01/14/2024 BPPV (benign paroxysmal positional vertigo) 01/02 Skin lesion 01/14/2024 Vaginal dryness, menopausal 07/10/2023 Anxiety 07/03/2023 Encounters Date Type Department Care Team Description 07/13/2025 9:15 AM EDT Office Visit [facility] [place] [address] Martina Pearson MD Other form of dyspnea (Primary Dx); Annual physical exam; Skin lesion; Chest discomfort 07/13/2025 Travel 07/12/2025 Travel 07/12/2025 Telephone [place] [address] [place] [address] Martina Pearson MD 07/06/2025 Patient Outreach [facility] [place] [address] Martina Pearson MD Pre-visit Planning (Pre-visit planning - LVM ) 06/11/2025 11:15 AM EDT Office Visit [facility] [place] [address] Mariam Singh NP Chest wall discomfort (Primary Dx); Concern about respiratory disease without diagnosis; Persistent dry cough 06/11/2025 Travel 06/09/2025 Telephone [facility] [place] [address] Cayla Welsh MA CHARTPREP 06/09/2025 Telephone [facility] [place] [address] Martina Pearson MD Nurse Triage 05/20/2025 Refill [facility] [place] [address] Martina Pearson MD Depression, unspecified depression type 05/17/2025 Results [address] [address] [place] [address] Martina Pearson MD BI Mammogram Screening Tomosynthesis Bilateral 05/04/2025 Orders Only [facility] [address] [facility] [place] [facility] [place] [address] Martina Pearson MD 04/19/2025 Telephone [facility] [address] [facility] [place] [address] Martina Pearson MD Med Refill 04/17/2025 Refill [facility] [address] [place] [address] Tessa Mena ANP Depression, unspecified depression type from Last 3 Months Family History Medical History Relation Name Comments HTN Father breast ca-52 y of age Father's Sister Lymphoma Mother Breast cancer-50 y of age Mother's Sister Colon cancer Other Paternal cousin Skin cancer Sister Relation Name Status Comments Father Father's Sister Mother Mother's Sister Other Sister Social History Tobacco Use Types Packs/Day Years [...] housing situation today? I have sarithaisabel gonzalez 06/11/[address] you [...] Orientation Straight 07/15/2023 2: 14 PM EDT Last Filed Vital Signs Vital Sign Reading [...] Mass Index 23.31 07/13/2025 9:19 AM EDT Plan of Treatment Health Maintenance Due Date Last Done Comments CT Colonography 1965 Colonoscopy 1965 Colorectal Cancer Screening 1965 FIT DNA/Cologuard 1965 FIT 1965 FOBT 1965 HIV Screening 1965 Sigmoidoscopy 1965 DTaP/Tdap/Td Vaccines (1 - Tdap) 1982 Pneumococcal Vaccine: 50+ Years (1 of 1 - PCV) 2013 Zoster Vaccines (1 of 2) 2013 Dental Oral Exam 01/14/2024 07/15/2023 Dental Prophylaxis 01/14/2024 07/15/2023 Dental X-Ray: Bitewings 07/16/2024 07/15/2023 COVID-19 Vaccine (2 - season) 2025 02/06/2021 Influenza Vaccine (#1) 2025 Alcohol/Substance Use Screening 11/13/2025 11/13/2024 SDOH Screening 06/11/2026 06/11/2025 Disability Screening 07/12/2026 07/12/2025 Depression Screening 07/13/2026 07/13/2025, 07/13/20 25 Tobacco Screening 07/13/2026 07/13/2025 Dental X-Ray: Full Mouth 07/16/2026 07/15/2023 Mammogram 05/04/2027 05/04/2025, 04/04, 03/13/2022, Additional history exists Cervical Cancer Screening 10/21/2028 HPV/Cotest 10/21/2028 10/21/2023 Pap Smear 10/21/2028 10/21/2023, 01/12/2015 RSV Patients and Patients Aged 60 years or older (1 - 1-dose 75+ series) 2038 Hepatitis C Screening Completed 10/21/2023 HIB Vaccines Aged Out No longer eligi ble based on patient's age to complete this topic HPV Vaccines Aged Out No longer eligi ble based on patient's age to complete this topic Hepatitis A Vaccines Aged Out No long er eligible based on patient's age to complete this topic Hepatitis B Vaccines Aged Out No long er eligible based on patient's age to complete this topic IPV Vaccines Aged Out No longer eligi ble based on patient's age to complete this topic Meningococcal B Vaccine Aged Out No l onger eligible based on patient's age to complete this topic Meningococcal Vaccine Aged Out No melanie lai eligible based on patient's age to complete this topic RSV under 20 months Aged Out No longe r eligible based on patient's age to complete this topic Rotavirus Vaccines Aged Out No longer eligible based on patient's age to complete this topic Procedures Procedure Name Priority Date/Time Associated Diagnosis Comments XR CHEST 2 VIEWS Routine 07/13/2025 10:2 9 AM EDT Other form of dyspnea Annual physical exam ECG 12-LEAD Routine 07/13/2025 10:14 AM EDT Chest discomfort BI MAMMOGRAM SCREENING TOMOSYNTHESIS BILATERAL Routine 05/04/2025 8:55 AM EDT HPV MRNA E6/E7 REFLEX TO HPV 16, 18/45 Routine 10/21/2023 9:36 AM EST PAP SMEAR Routine 10/21/2023 9:36 AM EST Cervical cancer screening HEPATITIS C AB W/REFL TO HCV RNA, QN, PCR Routine 10/21/2023 9:13 AM EST Annual physical exam PROPHYLAXIS - ADULT Routine 07/15/2023 1 :00 PM EDT Encounter for dental examination INTRAORAL - COMPLETE SERIES OF RADIOGRAPHIC IMAGES Routine 07/15/2023 1:00 PM EDT Encounter for dental examination PERIODIC ORAL EVALUATION - ESTABLISHED PATIENT Routine 07/15/2023 1:00 PM EDT from Last 3 Months or Most Recently Relevant to Health Maintenance Results * XR Chest 2 Views (07/13/2025 10:29 AM EDT) Anatomical Region Laterality Modality Chest Radiographic Tierra ging 07/13/2025 10:2 9 AM EDT Narrative 07/13/2025 10:38 [place] [address] XRay Report Signed Patient: Jesica Frye MR#: [id number] : 1965 Acct:[id number] Age/Sex: 60 / F ADM Date: 07/13/25 Loc: HO.HHCX Attending Dr: Martina Rogers MD Ordering Physician: Martina Pearson MD Date of Service: 07/13/25 Procedure(s): XR chest 2V Accession Number(s): [id number] cc: Martina Pearson MD Reason for Exam: [...] Abdoul Carlos MD 07/13/2025 10:35 AM EDT RP Dictated By: Abdoul John MD Signed By: <Electronically signed by Abdoul Sloan MD in OV> 07/13/25 1035 DD/ 1029 TD/TT: 07/13/25 1030 Liner Replacer: Procedure Note Donotuseinterpreter, Image - 07/13/[address] [address] XRay Report Signed Patient: Eileen Frye#: [id number] : 1965Acct:[id number] Age/Sex: 60 / FADM Date: 07/13/25 Loc: HO.HHCX Attending Dr: Martina Rogers MD Ordering Physician: Martina Pearson MD Date of Service: 07/13/25 Procedure(s): XR chest 2V Accession Number(s): [id number] cc: Martina Pearson MD Reason for Exam: [...] Abdoul Carlos MD 07/13/2025 10:35 AM EDT RP Dictated By: Abdoul John MD Signed By: <Electronically signed by Abdoul Sloan MDin OV> 07/13/25 1035 DD/ 1029 TD/TT: 07/13/25 1030 Liner Replacer: Martina Rogers MD IMG XR PROCEDURES Edited Result - Final * ECG 12 lead (07/13/2025 10:14 AM EDT) Narrative Martina Pearson MD - 07/13/2025 10:14 AM EDT -EKG today 07/2025 NSR, HR 71, Qtc 395, no ischemic findings us Martina Rogers MD ECG ORDERABLES F inal Result * BI Mammogram Screening Tomosynthesis Bilateral (05/04/2025 8:55 AM EDT) Anatomical Region Laterality Modality Breast Bilateral Mammography 05/04/2025 8:55 AM EDT Narrative 05/16/2025 2:40 PM EDT [address] [place] [address] Mammography Report Signed Patient: Jesica Frye MR#: [id number] : 1965 Acct:[id number] Age/Sex: 59 / F ADM Date: 05/04/25 Loc: HO.MAMMO Attending Dr: Martina Rogers MD Ordering Physician: Martina Pearson MD Re sults: 1Negative Date of Service: 05/04/25 Follow Up: 1 Year From Orig inal Mammogram Procedure(s): MM tomosynthesis screening BI Accession Number(s): [id number] cc: Martina Pearson MD EXAMINATION: MM SCREENING DIGITAL BREAST TOMOSYNTHESIS, BILATERAL CLINICAL INFORMATION: Screening. Asymptomatic. COMPARISON: Mammography: Comparison is made with available priors TECHNIQUE: Digital breast mammography with tomosynthesis is performed in both the craniocaudal and mediolateral oblique views along with computer-aided detection (CAD). FINDINGS: The breasts are heterogeneously dense, which may obscure small masses (ACR BI-RADS breast composition Category c). There are no significant masses, abnormal calcifications, or other abnormalities. MM/MM tomosynthesis screening BI IMPRESSION: No mammographic evidence of malignancy. ASSESSMENT: BI-RADS BI-RADS 1 - Negative RECOMMENDATION: Routine annual mammography screening. 1 year F/U This examination should not preclude the clinical evaluation of a suspicious palpable abnormality. This patient's information was entered into a reminder system with a target due date for their next mammogram. Electronically signed by: Carli Yanes DO 05/16/2025 02:37 PM EDT RP Dictated By: Carli Yanes DO Signed By: <Electronically signed by Carli Yanse DO in OV> 05/16/25 1437 DD/ 0855 TD/TT: 05/04/25 0910 Liner Replacer: Procedure Note Donotuseinterpreter, Image - 05/16/2025 [facility] [address] [place] [address] Mammography Report Signed Patient: Eileen Frye#: [id number] : 1965Acct:[id number] Age/Sex: 59 / FADM Date: 05/04/25 Loc: HO.MAMMO Attending Dr: Martina Rogers MD Ordering Physician: Martina Pearson sults: 1Negative Date of Service: 05/04/25Follow Up: 1 Year From Orig inal Mammogram Procedure(s): MM tomosynthesis screening BI Accession Number(s): [id number] cc: Martina Pearson MD EXAMINATION: MM SCREENING DIGITAL BREAST TOMOSYNTHESIS, BILATERAL CLINICAL INFORMATION: Screening. Asymptomatic. COMPARISON: Mammography: Comparison is made with available priors TECHNIQUE: Digital breast mammography with tomosynthesis is performed in both the craniocaudal and mediolateral oblique views along with computer-aided detection (CAD). FINDINGS: The breasts are heterogeneously dense, which may obscure small masses (ACR BI-RADS breast composition Category c). There are no significant masses, abnormal calcifications, or other abnormalities. MM/MM tomosynthesis screening BI IMPRESSION: No mammographic evidence of malignancy. ASSESSMENT: BI-RADS BI-RADS 1 - Negative RECOMMENDATION: Routine annual mammography screening. 1 year F/U This examination should not preclude the clinical evaluation of a suspicious palpable abnormality. This patient's information was entered into a reminder system with a target due date for their next mammogram. Electronically signed by: Carli Yanes DO 05/16/2025 02:37 PM EDT RP Dictated By: Carli Yanes DO Signed By: <Electronically signed by Carli Yanes DO in OV> 05/16/25 1437 DD/ 0855 TD/TT: 05/04/25 0910 Liner Replacer: us Martina Rogers MD IMG BI PROCEDURES Final Result * HPV mRNA E6/E7 w/Reflex to HPV Genotypes 16, 18/45 (10/21/2023 9:36 AM EST) HPV nRNA E6/E7 Not Detected Not Detected [facility] Comment:Methodology: Transcr iption-Mediated AmplificationThis assay detects E6/E7 viral messenger RNA (mRNA) from 14high-risk HPV types (16,18,31,33,35,39,45,51,52,56,58,59,66,68).Cervical sources are required for HPV testing.If a vaginal source from a patient who has had atotal hysterectomy with removal of cervix wassubmitted, please contact the testing laboratoryfor alternative testing options.For additional information, please refer [email or web address]/faq/ZWH087e5(This link if provided for information/educational purposes only.)THIS TEST WAS PERFORMED AT:[facility] [place] [id number] LANDRUM MD HPV mRNA E6/E7 TNP [facility] HPV 16 RNA [facility] HPV 18/45 RNA [facility] 10/21/2023 9:36 AM EST 10/22/2023 8:30 AM EST us Slava BOB LAB CYTOLOGY ORDERABLES F inal Result [facility] [address] [place] [phone] * Pap Smear (10/21/2023 9:36 AM EST) Swab Cervix uteri structure / Unknown 10/21/2023 9:36 AM EST 10/22/2023 8:30 AM EST [facility] - 10/30/2023 1:01 PM EST ----- ------- Name: Jesica Frye Age/Sex: 58/F : 1965 Unit#: [id number] Attend Dr: SLAVA TOUSSAINT CNM Re10/21/23 Status: DEP [facility] ----- ------- SPEC : [id number] RECD: 10/22/23 STATUS: KATH ROBERTO NUM: [id number] ABRAN: 10/21/[address] [facility] DR: SLAVA TOUSSAINT CNM ENTERED: 10/22/23 SP TYPE: Pap Smr OT DR: ORDERED: Pap Smear Interpretation Satisfactory for evaluation. Negative for intraepithelial lesion or malignancy. HPV mRNA E6/E7: NOT DETECTED This assay detects E6/E7 viral messenger RNA (mRNA) from 14 high-risk HPV types (16, 18, 31, 33, 35, 39, 45, 51, 52, 56, 58, 59, 66, 68) HPV testing performed by [facility], [place], [place]. See reference laboratory portion of the EMR for entire report. Clinical Information LMP: Postmenopausal Previous PAP test: 2015, NILM HPV- Material Received ThinPrep-Cervical ----- ------- Signed (signature on file) DIETER Fraga ([facility]) 10/30/23 1301 ----- ------- END OF REPORT Slava Toussaint CNM LAB CYTOLOGY ORDERABLES F inal Result Performing Organization Address [facility] Co de Phone Number [facility] [address] [place] [phone] * Hepatitis C Antibody with Reflex to HCV, RNA, Quantitative, Real-Time PCR (10/21/2023 9:13 AM EST) [facility] Hepatitis C Antibody Nonreactive Nonreactive [facility] Comment:Antibodies to HCV no t detected; does not exclude early acuteHCV infection. Blood Venous blood specimen / Unknown 10/21/2023 9:13 AM EST 10/21/2023 11:21 AM EST Martina Rogers MD LAB BLOOD ORDERAB LES Final Result Performing Organization Address [facility] Co de Phone Number [facility] [address] [place] [phone] from Last 3 Months or Most Recently Relevant to Health Maintenance Insurance [facility] MEDICAID STAND ADULT Care Teams Job Developer For Deaf Adults Relationship Specialty Start Date End Date Martina Pearson MD [address] [place] [address] PCP - General Internal Medicine 07/22/23
--- OUTSIDE RECORDS SUMMARY | 2025-07-13 12:07 | XMS_ITS | Encounter Summary ---
Author Organization [employer] Address [address] [facility] [address] [place] [address] Care Team Providers Care Measurement Analyst Name Role Phone Martina Pearson MD Primary Care Pro vider Encounter Details Date Type Department Care Team ([facility] [address] Contact Info) Description 07/12/2025 Telephone [facility] [address] [place] [address] Martina Pearson MD [address] [place] [address] Social History Tobacco Use Types Packs/Day Years [...] encounter Miscellaneous Notes * Telephone Encounter - Kami Wade MA - 07/12/2025 9:21 AM EDT Chart Prep Labs: not applicable Images: done Referrals: complete Vaccines due: Covid, Flu, PCV20, Tdap, and Zoster Screenings: colonoscopy and STI screening Overdue care gaps: Not applicable documented in this encounter Plan of Treatment Not on file documented as of this encounter Visit Diagnoses Not on filedocumented in this encounter Additional Health Concerns Assessment Noted Time PHQ-9 Depression Total Score: 0 11/13/19 25 3:27 PM EST documented as of this encounter Care Teams Measurement Analyst Relationship Specialty Start Date End Date Martina Pearson MD [address] [place] [phone] PCP - General Internal Medicine 07/22/23 documented as of this encounter
== END 2025-07-13 10:20 | disposition home or self-care (01) ==
LOC: HO.HHCX 10:19
PROVIDERS: PCP Student in an Organized Health Care Education/Training Program; Visit Provider Student in an Organized Health Care Education/Training Program
DX: R06.09 Other forms of dyspnea (principal)
CPT/HCPCS: 71046

== ENCOUNTER → 2025-07-13 10:21 | Outpatient (BNV) | payer OTHER, SELFPAY | PROVIDERS: PCP Student in an Organized Health Care Education/Training Program; Visit Provider Radiology Diagnostic Radiology | DX: R06.00 Dyspnea, unspecified (principal); J84.9 Interstitial pulmonary disease, unspecified | CPT/HCPCS: 71046 ==

== ENCOUNTER 2025-07-16 13:49 | Outpatient (REF) | payer OTHER, SELFPAY ==
--- NOTE | 2025-07-16 | PFT_ITS ---
Indication: Dyspnea Spirometry FEV1 to FVC 70% pre bronchodilators and 73% post bronchodilators; FEV1 2.05 L; FVC 2.82 L. No significant response to bronchodilators noted. To note the FEF 25 -75 53% predicted Lung Volumes Total lung capacity 89% predicted; residual volume 100% predicted; expiratory reserve volume 50% predicted Diffusion Capacity DLCO 107% predicted Comparison None Interpretation There appears to be a partially reversible obstructive ventilatory defect which could be consistent with a diagnosis of asthma. The patient also has evidence of small airways disease which is also suggestive of an asthma diagnosis. No significant response to bronchodilators noted. Lung volumes and diffusing capacity are Wei within normal limits. Clinical correlation warranted. MTDD
[2025-07-16 14:40] VITALS: PULSE 97; O2SAT 98
--- OUTSIDE RECORDS SUMMARY | 2025-07-16 16:42 | XMS_ITS | Clinical Summary ---
Author Organization [facility] Address [facility] [place] [address] Care Team Providers Care Manager R D Name Role Phone Unknown Primary Care Provider [...] The films were also reviewed with the [employer] Computer Aided Detection System (Version 10.0). COMPARISON: 03/11/2017 FINDINGS: The breasts are symmetric in size and are of scattered fibroglandular density. I see no suspicious masses or microcalcifications to suggest malignancy. us Bri Pastrana MD IMG MAMMO ORDERABLES Final Res ult * (ABNORMAL) External Colonoscopy (02/19/2017) External Colonoscopy DONE(Exter nal Lab) 02/19/2017 us His [place] Provider EXTERNAL GI PROCEDURE RE SULT Edited Result - Final * (ABNORMAL) External Pap Smear (02/25/2013 12:00 PM EDT) External PAP Smear 02/25/2013; See [employer] system for full report(Externa l Lab) [facility] CON[facility] Comment: Sourced from Leslie Quiroz Conversion 02/25/2013 12:0 0 PM EDT us His Gabriella Provider EXTERNAL LAB ORDERABLES nal Result [facility] RES[facility] CONVERSION from Last 3 Months or Most Recently Relevant to Health Maintenance Insurance MEDICAID [facility] FAMILIES Care Teams Manager R D Relationship Specialty Start Date End Date Unknown None PCP - General 11/04/19
== END 2025-07-16 13:50 | disposition home or self-care (01) ==
LOC: HO.RESP 13:49
PROVIDERS: PCP Student in an Organized Health Care Education/Training Program; Visit Provider Student in an Organized Health Care Education/Training Program
DX: R06.09 Other forms of dyspnea (principal)
CPT/HCPCS: 94010; 94640; 94727; 94729

== ENCOUNTER → 2025-07-16 13:52 | Outpatient (BNV) | payer OTHER, SELFPAY | PROVIDERS: PCP Student in an Organized Health Care Education/Training Program; Visit Provider Hospitalist | DX: R06.00 Dyspnea, unspecified (principal) | CPT/HCPCS: 94060; 94727; 94729 ==

== ENCOUNTER → 2025-08-11 09:01 | Outpatient (REF) | payer OTHER, SELFPAY ==
--- NOTE | 2025-08-11 09:05 | CA_ITS ---
Transthoracic Echocardiogram Patient (Last, First, Middle): Jesica Frye, Gender: F Date of : 1965 Age: 60 Procedure Date: 08/11/2025 Procedure Type: Transthoracic Echocardiogram Location: OP Height: 162.56 cm Weight: 61.24 kg BSA: 1.66 m2 Heart Rate: 63 bpm BP: 102 / 68 mmHg Agile Scrum Coach: SB Referring MD: Martina Rogers MD County Judge: Lan Rhodes MD Symptoms: DYSPNEA,UNSPECIFIED Study Quality: Adequate ECG Rhythm: Sinus Conclusions: - Essentially normal study Findings Left Ventricle Normal left ventricular size, thickness, and systolic function. The visually estimated ejection fraction is between 60-65%. Spectral Doppler is indicative of a normal filling pattern. Right Ventricle Normal right ventricular cavity size and systolic function. Atria Both atria are normal in size. Aortic Valve Normal aortic valve structure and function. There is no aortic valve stenosis. There is no aortic valve regurgitation. Mitral Valve There is mild anterior mitral leaflet thickening. There is trace mitral valve regurgitation. There is no mitral valve stenosis. Pulmonic Valve The pulmonic valve is likely normal. Tricuspid Valve Normal tricuspid valve structure. There is trace tricuspid valve regurgitation. The right ventricular systolic pressure is normal. The right ventricular systolic pressure is 17 mmHg. Normal right atrial pressure. There is no evidence of pulmonary hypertension. Great Vessels All visible segments of the aorta are normal in size. The pulmonary artery was not well visualized. Venous The inferior vena cava is normal in size and collapses greater than 50% with inspiration. Pericardium/Pleural There is no evidence of pericardial effusion. Prior Study Comparison No prior study available for comparison. Measurements 2D Linear Measurements IVSd: 0.73 0.6-0.9/0.6-1.0 cm LVIDd: 4.68 3.9-5.3/4.2-5.9 cm LVIDd Index: 2.82 2.4-3.2/2.2-3.1 cm/m2 LVIDs: 3.12 2.0-3.6 cm LVPWd: 0.69 0.7-1.1 cm LA Diam: 2.80 2.7-3.8/3.0-4.0 cm LAIDs Index: 1.69 1.5-2.3 cm/m2 LV Mass: 129.81 67-162/88-224 g LV Mass Index: 78.20 43-95/49-115 g/m2 LVOT Diam: 2.10 3.0+(-)1.3 cm 2D Systolic Function EF 4C: 61.20 >55% EF 2C: 60.90 >55% EF BiP: 60.60 >55% Mitral Valve MV Pk E: 0.98 MV PK A: 0.43 MV Decel Time: 178.00 E/A: 2.30 E'Lateral: 13.10 E'Medial: 9.68 E/E' Med: 10.10 E/E' Lat: 7.50 PHT: 52.00 MVA PHT: 4.23 Decel Bennett: 5.50 Aortic Valve AoV Pk Rome: 1.23 AoV Pk Grad: 6.00 KAE: 3.29 LVOT LVOT Pk Rome: 1.06 LVOT Mn Rome: 0.61 LVOT VTI: 0.19 LVOT Pk Grad: 4.00 LVOT Mn Grad: 2.00 LVOT Diam: 2.10 LVOT Area: 3.46 Diastolic Function MV Pk E: 0.98 MV Pk A: 0.43 E/A: 2.30 E'Medial: 9.68 E/E' Med: 10.10 E' Laterial: 13.10 E/E' Lat: 7.50 Right Ventricle TAPSE (mm): 24.90 TVS' Rome: 12.40 Tricuspid Valve TR Pk Rome: 1.84 TR Pk Grad: 14.00 RA Press: 3.00 RVSP: 17.00 Great Vessels Aorta Sinus of Valsalva: 3.10 2.0-3.5 cm Ao Asc: 3.20 2.1-3.4 cm Pulmonary Valve PV Pk Rome: 0.80 Peak PV Grad: 3.00 Updated in Other Vendor System with Status of Final Lan Rhodes MD electronically signed on 08/11/2025 4:53:50 PM with status of Final
== END ==
LOC: HO.CARD 09:01
PROVIDERS: PCP Student in an Organized Health Care Education/Training Program; Visit Provider Student in an Organized Health Care Education/Training Program
DX: R06.00 Dyspnea, unspecified (principal)
CPT/HCPCS: 93306

== ENCOUNTER → 2025-08-11 09:05 | Outpatient (BNV) | payer OTHER, SELFPAY | PROVIDERS: PCP Student in an Organized Health Care Education/Training Program; Visit Provider Internal Medicine Cardiovascular Disease | DX: R06.00 Dyspnea, unspecified (principal) | CPT/HCPCS: 93306 ==

== ENCOUNTER 2025-10-04 08:50 | Outpatient (REF) | payer OTHER, SELFPAY ==
--- OUTSIDE RECORDS SUMMARY | 2025-10-04 09:47 | XMS_ITS | Encounter Summary ---
Author Organization [employer] Address [address] [facility] 7t [place] [address] Care Team Providers Care Purchasing And Claims Supervisor Name Role Phone Martina Pearson MD Primary Care Pro vider Encounter Details Date Type Department Care Team (Latest Contact Info) Description 09/29/2025 Travel Social History Tobacco Use Types Packs/Day [...] as of this encounter Plan of Treatment Upcoming Encounters Date Type Department Care Team (Late st Contact Info) Description 10/06/2025 9:00 AM EST Office Visit [facility] [address] [place] [address] Martina Pearson MD [address] [place] [address] 10/14/2025 11:00 AM EST Office Visit [facility] [address] [place] [address] Anastasiya Howard CNM [address] [place] [address] documented as of this encounter Visit Diagnoses Not on filedocumented in this encounter Additional Health Concerns Assessment Noted Time PHQ-9 Depression Total Score: 3 07/13/20 25 10:17 AM EDT documented as of this encounter Care Teams Purchasing And Claims Supervisor Relationship Specialty Start Date End Date Martina Pearson MD [address] [place] [phone] PCP - General Internal Medicine 07/22/23 documented as of this encounter
--- OUTSIDE RECORDS SUMMARY | 2025-10-04 09:47 | XMS_ITS | Encounter Summary ---
Author Organization [employer] Address [address] [place] [address] Care Team Providers Care Sql Bi Developer Name Role Phone Kristyn Birmingham [facility] Primary Care Provider [phone] Martina Pearson MD Primary Care Pro vider Encounter Details Date Type Department Care Team (Late st Contact Info) Description 11/21/2022 Orders Only [facility] [address] [place], [place] [phone] Annabelle Abrams LPN Social History Tobacco Use [...] Encounters Date Type Department Care Team (Late Contact Info) Description 10/06/2025 9:00 AM EST Office Visit [facility] [address] [place] [address] Martina Pearson MD [address] [place] [address] [phone] 10/14/2025 11:00 AM EST Office Visit [facility] [address] [place] [address] [phone] Anastasiya Howard CNM [address] [place] [address] [phone] documented as of this encounter Procedures Procedure Name Priority Date/Time Associated Diagnosis Comments HPV MRNA E6/E7 REFLEX TO HPV 16, 18/45 Routine 10/21/2023 9:36 AM EST HEPATITIS B SURFACE ANTIGEN, EIA Routine 10/21/2023 9:13 AM EST documented in this encounter Results * HPV mRNA E6/E7 w/Reflex to HPV Genotypes 16, 18/45 (10/21/2023 9:36 AM EST) HPV nRNA E6/E7 Not Detected Not Detected [facility] Comment:Methodology: Transcr iption-Mediated AmplificationThis assay detects E6/E7 viral messenger RNA (mRNA) from 14high-risk HPV types (16,18,31,33,35,39,45,51,52,56,58,59,66,68).Cervical sources are required for HPV testing.If a vaginal source from a patient who has had atotal hysterectomy with removal of cervix wassubmitted, please contact the testing laboratoryfor alternative testing options.For additional information, please refer tohttp://education.Liquid/faq/GKA870q6(This link if provided for information/educational purposes only.)THIS TEST WAS PERFORMED AT:[facility] [place] [phone] LANDRUM MD HPV mRNA E6/E7 [facility] HPV 16 RNA [facility] HPV 18/45 RNA [facility] 10/21/2023 9:36 AM EST 10/22/2023 8:30 AM EST us Anastasiya BOB LAB CYTOLOGY ORDERABLES F inal Result [facility] [address] [place] [phone] * Hepatitis B surface antigen, EIA (10/21/2023 9:13 AM EST) Hepatitis B Surface Ag Negative Negative [facility] 10/21/2023 9:13 AM EST 10/21/2023 11:21 AM EST us Martina Rogers MD LAB BLOOD ORDERAB LES Final Result [facility] [address] [place] [address] [phone] documented in this encounter Visit Diagnoses Not on filedocumented in this encounter Care Teams Sql Bi Developer Relationship Specialty Start Date End Date Kristyn Birmingham FNP [address] [place] [address] PCP - General Family Medicine 05/01/22 07/21/23 Martina Pearson MD [address] [place] [address] PCP - General Internal Medicine 07/22/23 documented as of this encounter
--- OUTSIDE RECORDS SUMMARY | 2025-10-04 09:47 | XMS_ITS | Clinical Summary ---
Author Organization [employer] Address [address] [place] [address] 7 [place] [address] Care Team Providers Care Natural Resources Manager Name Role Phone Martina Pearson MD Primary Care Pro vider Allergies Active Allergy Reactions Criticality Noted Date Comments Penicillins Rash Low 11/13/2019 Reports rash as adult when took amoxicillin Acetic Acid 07/13/2025 Medications estradiol (Estrace) 0.1 MG/GM vaginal creamIndications :Vaginal dryness, menopausal 1 g 1-3 times a week vaginally prn 42.5 g 2 4 Active omega-3 acid ethyl esters (Lovaza) 1 g capsule Take 2 g by mouth 2 times daily. Active multivitamin (Theragran) tablet Take 1 tablet by mouth Once per day. Active Collagen-Vitamin C-Biotin (COLLAGEN 1500/C PO) Take by mouth. Activ e albuterol 108 (90 Base) MCG/ACT inhalerIndicatio ns:Dyspnea, unspecified type Inhale 2 puffs every 4 (four) hours if needed for wheezing. 18 g 5 07/19/20 26 Active citalopram (CeleXA) 20 MG tabletIndication s:Depression, unspecified depression type Take 0.5 tablets (10 mg) by mouth Once per day. 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 Assessment & Plan (11/13/2024 4:14 PM EST): Patient reassured Health care maintenance 01/14/2024 BPPV (benign paroxysmal positional vertigo) 01/02 Skin lesion 01/14/2024 Vaginal dryness, menopausal 07/10/2023 Anxiety 07/03/2023 Encounters Date Type Department Care Team Description 09/29/2025 Travel 09/23/2025 Patient Outreach [facility] [address] [place] [address] Martina Pearson MD Pre-visit Planning (SDOH screening was completed on 06/11/2025) 08/26/2025 Orders Only [facility] [address] [place] [address], [place] [address] Martina Pearson MD Depression, unspecified depression type 08/26/[address] [address] Martina Pearson MD Depression, unspecified depression type 08/12/[address] [address] Martina Pearson MD Results 08/06/2025 Refill [facility] [address] [place] [address] Martina Pearson MD 07/27/2025 Telephone [facility] [address] [place] [address] Dana Morgan MA 07/19/2025 Orders Only [facility] [address] [place] [address] Martina Pearson MD Dyspnea, unspecified type (Primary Dx) 07/16/[address] [address] Martina Pearson MD Results 07/16/[address] [address] Martina Pearson MD dec recall 07/14/[address] [address] Martina Pearson MD Call Back Request 07/13/2025 9:15 AM EDT Office Visit [facility] [address] [place] [address] Martina Pearson MD Other form of dyspnea (Primary Dx); Annual physical exam; Skin lesion; Chest discomfort; Health care maintenance 07/13/2025 Results Follow-Up [facility] [place] [address] Martina Pearson MD XR Chest 2 Views 07/13/2025 Travel 07/12/2025 Travel 07/12/2025 Telephone [facility] [place] [address] Martina Pearson MD 07/06/2025 Patient Outreach [facility] [address] Martina Pearson MD Pre-visit Planning (Pre-visit planning - LVM ) from Last 3 Months Family History Medical [...] 07/13/2025 9:19 AM EDT Plan of Treatment Upcoming Encounters Date Type Department Care Team (Late st Contact Info) Description 10/06/2025 9:00 AM EST Office Visit [facility] [address] [place] [address] Martina Pearson MD [address] [place] [address] 10/14/2025 11:00 AM EST Office Visit [facility] [address] [place] [address] Slava Toussaint CNM [address] [place] [address] Health Maintenance Due Date Last Done Comments [...] 07/12/2026 07/12/2025 Depression Screening 07/13/2026 07/13/2025, 07/13/20 Tobacco Screening 07/13/2026 07/13/2025 Dental X-Ray: Full [...] AM EDT Narrative 07/13/2025 10:38 AM EDT [address] [address] XRay Report Signed Patient: Jesica Frye MR#: [id number] : 1965 Acct:[id number] Age/Sex: 60 / F ADM Date: 07/13/25 Loc: JAYDAX Attending Dr: Martina Rogers MD Ordering Physician: Martina Pearson MD Date of Service: 07/13/25 Procedure(s): XR chest 2V Accession Number(s): [id number] cc: Martina Pearson MD Reason for Exam: [...] 07/13/25 1035 DD/ 1029 TD/TT: 07/13/25 1030 [employer] Curtain Machine Tender: Procedure Note Donotuseinterpreter, Image - 07/13/2025 [place] [address] XRay Report Signed Patient: Eileen Frye#: [id number] : 1965Acct:[id number] Age/Sex: 60 / FADM Date: 07/13/25 Loc: ANNMARIE.HHCX Attending Dr: Martina Rogers MD Ordering Physician: Martina Pearson MD Date of Service: 07/13/25 Procedure(s): XR chest 2V Accession Number(s): [id number] cc: Martina Pearson MD Reason for Exam: [...] 07/13/25 1035 DD/ 1029 TD/TT: 07/13/25 1030 [employer] Curtain Machine Tender: us Martina Rogers MD IMG XR PROCEDURES [...] AM EDT Narrative 05/16/2025 2:40 PM EDT [facility] [address] [place] [address] Mammography Report Signed Patient: Jesica Frye MR#: [id number] : 1965 Acct:[id number] Age/Sex: 59 / F ADM Date: 05/04/25 Loc: HO.MAMMO Attending Dr: Martina Rogers MD Ordering Physician: Martina Pearson MD Re sults: 1Negative Date of Service: 05/04/25 Follow Up: 1 Year From Orig inal Mammogram Procedure(s): MM tomosynthesis screening BI Accession Number(s): [id number] cc: Martina Pearson MD EXAMINATION: MM SCREENING [...] Carli Yanes DO 05/16/2025 02:37 PM EDT Dictated By: Carli Yanes DO Signed By: <Electronically signed by Carli Yanes DO in OV> 05/16/25 1437 DD/ 0855 TD/TT: 05/04/25 0910 [employer] Tender: Procedure Note Donotuseinterpreter, Image - 05/16/2025 [facility] [address] [place] [address] Mammography Report Signed Patient: Eileen Frye#: [id number] : 1965Acct:[id number] Age/Sex: 59 / FADM Date: 05/04/25 Loc: LINDAO Attending Dr: Martina Rogers MD Ordering Physician: Martina Pearson sults: 1Negative Date of Service: 05/04/25Follow Up: 1 Year From Orig inal Mammogram Procedure(s): MM tomosynthesis screening BI Accession Number(s): [id number] cc: Martina Pearson MD EXAMINATION: MM SCREENING [...] Carli Yanes DO 05/16/2025 02:37 PM EDT Dictated By: Carli Yanes DO Signed By: <Electronically signed by Carli Yanes DO in OV> 05/16/25 1437 DD/ 0855 TD/TT: 05/04/25 0910 [employer] Curtain Machine Tender: Martina Rogers MD IMG BI PROCEDURES Final Result * HPV mRNA E6/E7 w/Reflex to HPV Genotypes 16, 18/45 (10/21/2023 9:36 AM EST) HPV nRNA E6/E7 Not Detected Not Detected [facility] Comment:Methodology: Transcr iption-Mediated AmplificationThis assay detects E6/E7 viral messenger RNA (mRNA) from 14high-risk HPV types (16,18,31,33,35,39,45,51,52,56,58,59,66,68).Cervical sources are required for HPV testing.If a vaginal source from a patient who has had atotal hysterectomy with removal of cervix wassubmitted, please contact the testing laboratoryfor alternative testing options.For additional information, please refer tohttp://education.Swish/faq/WSI450u2(This link if provided for information/educational purposes only.)THIS TEST WAS PERFORMED AT:[facility] [place] [phone] LANDRUM MD HPV mRNA E6/E7 TNP [facility] HPV 16 RNA TNP [facility] HPV 18/45 RNA TNP [facility] 10/21/2023 9:36 AM EST 10/22/2023 8:30 AM EST Slava Toussaint CNM LAB CYTOLOGY ORDERABLES F inal Result [facility] [address] [place] [address] [phone] * Pap Smear (10/21/2023 9:36 AM EST) Swab Cervix uteri structure / Unknown 10/21/2023 9:36 AM EST 10/22/2023 8:30 AM EST Narrative [facility] - 10/30/2023 1:01 PM EST ----- ------- Name: Jesica Frye Age/Sex: 58/F : 1965 Unit#: [id number] Attend Dr: SLAVA TOUSSAINT CNM Re10/21/23 Status: DEP REF Location: HO.HHCLNP Disch: ----- ------- SPEC : [id number] RECD: 10/22/23 STATUS: KATH MEJIA NUM: [id number] ABRAN: 10/21/23 [facility] DR: SLAVA TOUSSAINT CNM ENTERED: 10/22/23 SP TYPE: Pap Smr OTHR DR: ORDERED: Pap Smear Interpretation Satisfactory for evaluation. Negative for intraepithelial lesion or malignancy. HPV mRNA E6/E7: NOT DETECTED This assay detects E6/E7 viral messenger RNA (mRNA) from 14 high-risk HPV types (16, 18, 31, 33, 35, 39, 45, 51, 52, 56, 58, 59, 66, 68) HPV testing performed by [facility], [place], [place]. See reference laboratory portion of the EMR for entire report. Clinical Information LMP: Postmenopausal Previous PAP test: 2015, NILM HPV- Material Received ThinPrep-Cervical ----- ------- Signed (signature on file) DIETER Fraga (ASCP) 10/30/23 1301 ----- ------- END OF REPORT Slava Toussaint CNM LAB CYTOLOGY ORDERABLES F inal Result [facility] [address] [place] [address] [phone] * Hepatitis C Antibody with Reflex to HCV, RNA, Quantitative, Real-Time PCR (10/21/2023 9:13 AM EST) Hepatitis C Antibody Nonreactive Nonreactive [facility] Comment:Antibodies to HCV no t detected; does not exclude early acuteHCV infection. Blood Venous blood specimen / Unknown 10/21/2023 9:13 AM EST 10/21/2023 11:21 AM EST Martina Rogers MD LAB BLOOD ORDERAB LES Final Result [facility] [address] [place] [address] [phone] from Last 3 Months or Most Recently Relevant to Health Maintenance Insurance [facility] MEDICAID STAND ADULT Care Teams Natural Resources Manager Relationship Specialty Start Date End Date Martina Pearson MD [address] [place] [address] PCP - General Internal Medicine 07/22/23
--- OUTSIDE RECORDS SUMMARY | 2025-10-04 09:47 | XMS_ITS | Encounter Summary ---
Author Organization [employer] Address [address] [place] [address] Care Team Providers Care Jailor Name Role Phone Martina Pearson MD Primary Care Pro vider Reason for Visit * Reason Onset Date Comments Med Refill 04/19/2025 Encounter Details Date Type Department Care Team ([facility] Contact Info) Description 04/19/2025 Telephone [facility] [address] [place] [address] Martina Pearson MD [address] [place] [address] Med Refill Social History Tobacco Use Types [...] 10 MG tablet To be sent to: [facility]/pharmacy #[id number] documented in this encounter Plan of Treatment Upcoming Encounters Date Type Department Care Team (Late st Contact Info) Description 10/06/2025 9:00 AM EST Office Visit [facility] [address] [place] [address] Martina Pearson MD [address] [place] [address] 10/14/2025 11:00 AM EST Office Visit [facility] [address] [place], [place] [phone] Anastasiya Howard CNM [address] [place], [place] [phone] documented as of this encounter Visit Diagnoses Not on filedocumented in this encounter Additional Health Concerns Assessment Noted Time PHQ-9 Depression Total Score: 0 11/13/19 25 3:27 PM EST documented as of this encounter Care Teams Jailor Relationship Specialty Start Date End Date Martina Pearson MD [address] [place], [place] [phone] PCP - General Internal Medicine 07/22/23 documented as of this encounter
--- OUTSIDE RECORDS SUMMARY | 2025-10-04 09:47 | XMS_ITS | Encounter Summary ---
Author Organization [employer] Address [address] [facility] 7 [place] [address] Care Team Providers Care Branch Administrator Name Role Phone Martina Pearson MD Primary Care Pro vider Encounter Details Date Type Department Care Team ([facility] Contact Info) Description 08/26/2025 Orders Only [facility] [address] [place] [address] Martina Pearson MD [address] [place] [address] Depression, unspecified depression type Social History Tobacco Use Types Packs/Day Years [...] Description 10/06/2025 9:00 AM EST Office Visit [facility] [address] [place] [address] Martina Pearson MD [address] [place] [address] 10/14/2025 11:00 AM EST Office Visit [address] [address] Anastasiya Howard CNM [address] [place] [address] documented as of this encounter Visit Diagnoses Diagnosis Depression, unspecified depression type documented in this encounter Additional Health Concerns Assessment Noted Time PHQ-9 Depression Total Score: 3 07/13/20 25 10:17 AM EDT documented as of this encounter Care Teams Branch Administrator Relationship Specialty Start Date End Date Martina Pearson MD [address] [place] [address] PCP - General Internal Medicine 07/22/23 documented as of this encounter
--- OUTSIDE RECORDS SUMMARY | 2025-10-04 09:47 | XMS_ITS | Encounter Summary ---
Author Organization [employer] Address [address] [place] [address] Care Team Providers Care Catalogue Librarian Name Role Phone Martina Pearson MD Primary Care Pro vider Reason for Visit * Reason Onset Date Comments Call Back Request 07/14/2025 Encounter Details Date Type Department Care Team ([facility] Contact Info) Description 07/14/2025 Telephone [facility] [address] [place] [address] Martina Pearson MD [address] [place] [address] Call Back Request Social History Tobacco Use Types Packs/Day Years [...] your housing situation today? I have saritha sing 06/11/[address] you li [...] encounter Miscellaneous Notes * Telephone Encounter - Aurora Dixon RN - 07/14/2025 3:46 PM EDT Called pt, explained that PFT test ordered yesterday to [facility] and to expect call in 7-10 business days from that office to schedule. Gave number for centralized scheduling. Pt asking about next appt, advised her on recall for August 2025 and due to PCP now working participant administrator, limited availability butwill call back once appt availability know. Pt verbalized understanding. * Telephone Encounter - Sonny Fernando - 07/14/2025 3:23 PM EDT Tc from pt requesting a call back regarding pulmonary test. She was informed by pcp during yesterday's visit that she will be receiving a call back regarding that test but has not received anything as of yet and would like to clarify. Please contact pt at [phone]. documented in this encounter Plan of Treatment Upcoming Encounters Date Type Department Care Team ([facility] st Contact Info) Description 10/06/2025 9:00 AM EST Office Visit [facility] [address] [place] [phone] Martina Pearson MD [address] [place], [place] [phone] 10/14/2025 11:00 AM EST Office Visit [facility] [address] [place], [place] [phone] Anastasiya Howard CNM [address] [place], [place] [phone] documented as of this encounter Visit Diagnoses Not on filedocumented in this encounter Additional Health Concerns Assessment Noted Time PHQ-9 Depression Total Score: 3 07/13/20 25 10:17 AM EDT documented as of this encounter Care Teams Catalogue Librarian Relationship Specialty Start Date End Date Martina Pearson MD [address] [place] [address] PCP - General Internal Medicine 07/22/23 documented as of this encounter
--- OUTSIDE RECORDS SUMMARY | 2025-10-04 09:47 | XMS_ITS | Clinical Summary ---
Author Organization [facility] Address [facility] [place] [address] Care Team Providers Care Human Intelligence Name Role Phone Unknown Primary Care Provider [...] Additional history exists Covid-19 Vaccine (1 - 2024-2 6 season) 2025 Influenza (Flu) vaccine (1 o [...] The films were also reviewed with the [employer] Computer Aided Detection System (Version 10.0). COMPARISON: 03/11/2017 FINDINGS: The breasts are symmetric in size and are of scattered fibroglandular density. I see no suspicious masses or microcalcifications to suggest malignancy. us Bri Pastrana MD IMG MAMMO ORDERABLES Final Res ult * (ABNORMAL) External Colonoscopy (02/19/2017) External Colonoscopy DONE(Exter nal Lab) 02/19/2017 us His [place] Provider EXTERNAL GI PROCEDURE RE SULT Edited Result - Final * (ABNORMAL) External Pap Smear (02/25/2013 12:00 PM EDT) External PAP Smear 02/25/2013; See [employer] system for full report(Externa l Lab) [facility] CONVERSION Comment: Sourced from Leslie Quiroz Conversion 02/25/2013 12:0 0 PM EDT us His Gabriella Provider EXTERNAL LAB ORDERABLES Fi nal Result [facility] CONVERSION from Last 3 Months or Most Recently Relevant to Health Maintenance Insurance [place] [facility] Care Teams Human Intelligence Relationship Specialty Start Date End Date Unknown None PCP - General 11/04/19
--- OUTSIDE RECORDS SUMMARY | 2025-10-04 09:47 | XMS_ITS | Encounter Summary ---
Author Organization [employer] Address [address] [place] [address] [address] [place] [address] Care Team Providers Care Rail Car Repair Carman Name Role Phone Martina Pearson MD Primary Care Pro vider Reason for Visit * Reason Comments Med Refill Encounter Details Date Type Department Care Team ([facility] Contact Info) Description 08/06/2025 Refill [facility] [address] [place] [address] Martina Pearson MD [address] [place] [address] Social History Tobacco Use Types Packs/Day Years [...] EST Office Visit [facility] [address] [place] [address] Martina Pearson MD [address] [place] [address] 10/14/2025 11:00 AM EST Office Visit [address] [address] Anastasiya Howard CNM [address] [place] [address] documented as of this encounter Visit Diagnoses Not on filedocumented in this encounter Additional Health Concerns Assessment Noted Time PHQ-9 Depression Total Score: 3 07/13/20 25 10:17 AM EDT documented as of this encounter Care Teams Rail Car Repair Carman Relationship Specialty Start Date End Date Martina Pearson MD [address] [place] [address] PCP - General Internal Medicine 07/22/23 documented as of this encounter
[2025-10-04 11:12] LABS: MANUAL DIFF FLAG NO
[2025-10-04 11:27] LABS: Hematocrit 39.7 % (37.0-47.0); Hemoglobin 13.3 g/dl (12.0-16.0); Imm Gran Abs Auto 0.01 X10*3/uL (0.00-0.03); Imm Gran Pct Auto 0.2 % (0.0-0.4); Lymphocytes Absolute Auto 1.6 X10*3/uL (1.2-4.9); Mean Corpuscular HGB Conc 33.5 g/dl (31.0-35.0); Mean Corpuscular Hemoglobin 30.6 pg (27.0-33.0); Mean Corpuscular Volume 91.3 fL (80.0-98.0); NRBC Abs Auto 0.000 X10*3/uL (0.0-0.012); NRBC Pct Auto 0.0 /100WBC (0.0-0.2); Platelet Count 331 X10*3/uL (160-400); Red Blood Count 4.35 X10*6/uL (4.20-5.50); White Blood Count 4.7 X10*3/uL (4.8-10.8)
[2025-10-04 12:18] LABS: Alanine Aminotransferase 15 U/L (0-31); Albumin Level 4.4 g/dL (3.5-5.0); Alkaline Phosphatase 64 U/L (39-117); Anion Gap 9 (12-20); Aspartate Amino Transferase 20 U/L (5-31); Blood Urea Nitrogen 10 mg/dL (9-16); Calcium 9.2 mg/dL (8.4-10.2); Carbon Dioxide 28 mmol/L (22-29); Chloride 108 mmol/L (96-108); Cholesterol 198 mg/dL (<200); Estimated Glomerular Filt Rate > 60; HDL Cholesterol 79 mg/dL (>40); Potassium 3.6 mmol/L (3.3-5.1); Sodium 141 mmol/L (135-145); Total Protein 6.8 g/dL (6.5-8.0); Triglycerides 80 mg/dL (<150)
[2025-10-04 12:40] LABS: Syphilis Screen Nonreactive (Nonreactive)
[2025-10-04 12:41] LABS: HBsAGNum1 0.29 S/CO (0.00-0.99); HIV Num 1 0.06 S/CO (0.00-0.99); Hepatitis B Surface Antigen Negative (Negative); ~HepC Num1 0.50 S/CO (0.00-0.79); ~Hepatitis C Antibody Nonreactive (Nonreactive)
== END 2025-10-04 08:51 | disposition home or self-care (01) ==
LOC: HO.HHCL 08:50
PROVIDERS: PCP Student in an Organized Health Care Education/Training Program; Visit Provider Student in an Organized Health Care Education/Training Program
DX: Z00.00 Encounter for general adult medical examination without abnormal findings (principal); Z11.4 Encounter for screening for human immunodeficiency virus [HIV]; Z11.59 Encounter for screening for other viral diseases; Z20.2 Contact with and (suspected) exposure to infections with a predominantly sexual mode of transmission; Z13.6 Encounter for screening for cardiovascular disorders; Z13.1 Encounter for screening for diabetes mellitus; Z13.21 Encounter for screening for nutritional disorder; Z13.29 Encounter for screening for other suspected endocrine disorder
CPT/HCPCS: 36415; 80053; 80061; 82248; 82306; 83036; 84443; 85025; 86780; 86803; 87340; 87389